=== PATIENT | female | born 1990 | race African-American/Black ===

== ENCOUNTER 2020-06-16 13:55 | Emergency (ER) | payer MEDICAID ==
[~2020-06-16] VITALS: Ht 160 cm; Wt 67.0 kg
[2020-06-16] MEDS ORDERED: KETOROLAC 15MG/ML VIAL IV ONE (15:00)
[2020-06-16 15:16] LABS: BASOPHILS % 0.5 % (0.0-2.0); EOSINOPHILS % 3.9 % (0.0-5.0); HEMATOCRIT. 38.2 % (36.0-48.0); HEMOGLOBIN. 12.1 g/dL (12.0-16.0); LYMPHOCYTES % 46.8 % (20.0-50.0); MEAN CORPUSCULAR HEMOGLOBIN 22.8 pg (28.0-32.0); MEAN CORPUSCULAR VOLUME 71.9 fL (81.0-99.0); MEAN PLATELET VOLUME 8.8 fl (7.4-10.4); MONOCYTES % 8.2 % (2.0-8.0); NEUTROPHILS % 40.6 % (40.0-76.0); PLATELET 222 x1000/uL (130-400)
[2020-06-16 15:24] LABS: CHLORIDE 108 mEq/L (98-107)
[2020-06-16 15:38] LABS: HCG SCREEN NEGATIVE
[2020-06-16] MEDS ORDERED: ACETAMINOPHEN 325MG TABLET PO ONE (17:15)
[2020-06-16 17:27] VITALS: BP 110/65
== END 2020-06-16 17:37 | disposition home or self-care (01) ==
LOC: ER 13:55
DX: R07.89 Other chest pain (principal); F12.10 Cannabis abuse, uncomplicated; F17.200 Nicotine dependence, unspecified, uncomplicated
CPT/HCPCS: 36415; 71045; 80053; 81025; 83880; 84484; 84703; 85025; 93005; 96374; 99285; J1885

== ENCOUNTER 2025-01-01 13:37 | Emergency (ER) | payer MEDICAID, OTHER ==
[~2025-01-01] VITALS: Ht 160 cm; Wt 74.0 kg
[2025-01-01 13:54] VITALS: O2SAT 100
[2025-01-01] MEDS: SODIUM CHLORIDE 0.9% 1,000 ML IV ONE (15:11)
[2025-01-01 15:22] LABS: CLARITY URINE CLEAR (CLEAR); COLOR URINE YELLOW (YELLOW); GLUCOSE URINE NEGATIVE (NEGATIVE); KETONES URINE NEGATIVE (NEGATIVE); LEUKOCYTE ESTERASE URINE TRACE (NEGATIVE); NITRITE URINE NEGATIVE (NEGATIVE); OCCULT BLOOD URINE 3+ (NEGATIVE); PH URINE 7.5 (4.5-8.0); PROTEIN URINE 1+ (NEGATIVE); SPECIFIC GRAVITY URINE 1.008 (1.005-1.030); UROBILINOGEN URINE 0.2 E.U./dL (0.2-1.0)
[2025-01-01 15:24] LABS: BACTERIA URINE 1+; RBC URINE 15-25 /hpf (0-2); SQUAMOUS EPITHELIAL CELL URINE RARE /lpf (RARE/1+)
[2025-01-01 15:25] LABS: UCG KIT EXPIRATION DATE 11/27/2026; UCG SCREEN NEGATIVE
[2025-01-01 15:28] LABS: ADD RBC MORPHOLOGY YES; BASOPHILS % 0.7 % (0.0-2.0); CHLORIDE 108 mEq/L (98-107); DIFFERENTIAL COMMENT 1; EOSINOPHILS % 2.1 % (0.0-5.0); HEMATOCRIT. 31.1 % (36.0-48.0); HEMOGLOBIN. 9.7 g/dL (12.0-16.0); LYMPHOCYTES % 54.6 % (20.0-50.0); MEAN CORPUSCULAR HEMOGLOBIN 21.2 pg (28.0-32.0); MEAN CORPUSCULAR HGB CONC 31.3 g/dL (31.0-37.0); MEAN CORPUSCULAR VOLUME 67.7 fL (81.0-99.0); MEAN PLATELET VOLUME 8.7 fl (7.4-10.4); MONOCYTES % 5.3 % (2.0-8.0); NEUTROPHILS % 37.3 % (40.0-76.0); PLATELET 350 x1000/uL (130-400); POTASSIUM 3.6 mEq/L (3.5-5.1); RED BLOOD CELL COUNT 4.59 mill/uL (4.2-5.4); RED CELL DISTRIBUTION WIDTH 15.9 % (11.6-14.6); SODIUM 141 mEq/L (136-145); WHITE BLOOD COUNT 3.2 x1000/uL (4.5-11.0)
[2025-01-01 15:29] LABS: CARBON DIOXIDE 27 mEq/L (21-32)
[2025-01-01 15:30] LABS: CALCIUM 9.2 mg/dL (8.7-10.4); HCG SCREEN NEGATIVE
[2025-01-01 15:34] LABS: CREATININE 0.9 mg/dL (0.6-1.0); GLUCOSE 104 mg/dL (70-105)
[2025-01-01 15:35] LABS: UREA NITROGEN BLOOD 9 mg/dL (9-23)
[2025-01-01 15:37] LABS: B-HCG QUANTITATIVE 1 mIU/mL (<6)
[2025-01-01 15:57] LABS: ANISOCYTOSIS 1+; HYPOCHROMASIA 2+; MICROCYTOSIS 3+
[2025-01-01 15:58] LABS: OVALOCYTES 1+; PLATELET ESTIMATE NORMAL
[2025-01-01 16:33] VITALS: BP 111/60; PULSE 74; RESP 14; TEMP 37.4; O2SAT 100
== END 2025-01-01 17:10 | disposition home or self-care (01) ==
LOC: ER 13:37
DX: F12.90 Cannabis use, unspecified, uncomplicated (principal); D25.9 Leiomyoma of uterus, unspecified; N94.6 Dysmenorrhea, unspecified; N89.8 Other specified noninflammatory disorders of vagina; Z86.018 Personal history of other benign neoplasm
CPT/HCPCS: 80048; 81003; 81025; 84703; 84702; 85025; 86850; 86900; 86901; 36415; 76830; 76856; 96360; 96361; 99284; J7030; Z7610 ×2